=== PATIENT | female | born 1955 | race Caucasian/White ===

== ENCOUNTER 2016-06-03 06:58 | Day surgery (SDC) | payer OTHER ==
[~2016-06-03] VITALS: Ht 165.1 cm; Wt 95.2 kg
[2016-06-03] VITALS (7 sets, daily range): BP systolic 123–150; BP diastolic 64–90; PULSE 73–96; TEMP 97.8–99
[2016-06-03] MEDS ORDERED: AMBIEN 5MG TABLE5 MG PO (09:02)
[2016-06-03] MEDS ORDERED: ACIPHEX20 MG PO (09:02)
[2016-06-03] MEDS ORDERED: GLUCOPHAGE500 MG/TAB PO (09:03)
[2016-06-03] MEDS ORDERED: TESSALON PERLE200 MG PO (09:04)
[2016-06-03] MEDS ORDERED: ZANTAC 150MG T150 MG PO (09:05)
[2016-06-03] MEDS ORDERED: TUMS500 MG PO (09:06)
[2016-06-03] MEDS ORDERED: PERCOCET 325 MG1 TA2 PO (10:25)
== END 2016-06-03 12:45 | disposition home or self-care (01) ==
LOC: SDCO 06:58
DX: C50.111 Malignant neoplasm of central portion of right female breast (principal); K76.0 Fatty (change of) liver, not elsewhere classified; D69.59 Other secondary thrombocytopenia; E66.9 Obesity, unspecified; G47.33 Obstructive sleep apnea (adult) (pediatric); E11.9 Type 2 diabetes mellitus without complications; Z79.84 Long term (current) use of oral hypoglycemic drugs
CPT/HCPCS: J0690; J1100; J1170; J2270; J2405; J2704; J3010; J7030

== ENCOUNTER 2016-08-25 07:27 | Day surgery (SDC) | payer OTHER ==
[~2016-08-25] VITALS: Ht 165.1 cm; Wt 100.5 kg
[~2016-08-25 07:27] MED LIST: ACIPHEX20 MG PO; AMBIEN 5MG TABLE5 MG PO; GLUCOPHAGE500 MG/TAB PO; PERCOCET 325 MG1 TA2 PO; TESSALON PERLE200 MG PO; TUMS500 MG PO; ZANTAC 150MG T150 MG PO
[2016-08-25 08:14] VITALS: BP 156/80; PULSE 72; TEMP 98.5
[2016-08-25] MEDS ORDERED: TAMOXIFEN CITRA20 MG PO (08:26)
[2016-08-25 09:30] VITALS: BP 164/101; PULSE 84; TEMP 98.8
[2016-08-25 09:45] VITALS: BP 139/83; PULSE 75
[2016-08-25 10:00] VITALS: BP 135/91; PULSE 74
[2016-08-25 11:42] VITALS: BP 162/90; PULSE 96
== END 2016-08-25 10:30 | disposition home or self-care (01) ==
LOC: SDCO 07:27
DX: I85.01 Esophageal varices with bleeding (principal); K44.9 Diaphragmatic hernia without obstruction or gangrene; K29.50 Unspecified chronic gastritis without bleeding; K21.9 Gastro-esophageal reflux disease without esophagitis; I10 Essential (primary) hypertension; E78.00 Pure hypercholesterolemia, unspecified; Z85.3 Personal history of malignant neoplasm of breast; K74.60 Unspecified cirrhosis of liver
CPT/HCPCS: OP; J2250; J2704; J3010; J7030

== ENCOUNTER → 2017-05-07 | Outpatient (CLI) | payer OTHER ==
[~2017-05-07] MED LIST changes: +TAMOXIFEN CITRA20 MG PO
== END ==
LOC: MC.RAD 09:25
DX: Z12.31 Encounter for screening mammogram for malignant neoplasm of breast (principal); D05.11 Intraductal carcinoma in situ of right breast

== ENCOUNTER → 2018-05-13 | Outpatient (CLI) | payer OTHER | LOC: MC.RAD 08:49 | DX: Z12.31 Encounter for screening mammogram for malignant neoplasm of breast (principal); D05.11 Intraductal carcinoma in situ of right breast; Z98.890 Other specified postprocedural states ==

== ENCOUNTER 2018-10-18 07:08 | Outpatient (CLI) | payer OTHER ==
[~2018-10-18] VITALS: Ht 165.1 cm; Wt 89.1 kg
[2018-10-18] MEDS ORDERED: COZAAR 50MG50 MG/TAB PO (08:21)
[2018-10-18] MEDS ORDERED: NEURONTIN300 MG/CAP PO (08:22)
[2018-10-18] MEDS ORDERED: FLEXERIL 1010 MG/TAB PO (08:24)
[2018-10-18] MEDS ORDERED: LYRICA 150MG C150 MG PO (08:24)
[2018-10-18] MEDS ORDERED: ZANAFLEX CAPSULE4 MG PO (08:25)
[2018-10-18 08:50] VITALS: BP 144/70; PULSE 90; TEMP 98.6
--- NOTE | 2018-10-18 09:00 | NUR ---
Pt to OR for BMBx per cart with Brandy LINARES.
[2018-10-18 09:35] VITALS: BP 129/77; PULSE 84
--- NOTE | 2018-10-18 09:35 | NUR ---
Pt returned to [facility] per cart s/p bmbx. Pt transfered herself to bed. Pt won bmbx well.
[2018-10-18 09:40] LABS: BASO % 0.2 % (0.0-2.0); EOS # 0.1 (0.0-0.7); EOS % 2.6 % (0-4.0); GRAN % 61.9 % (42.2-75.2); HEMATOCRIT 34.4 % (37.0-47.0); HEMOGLOBIN 11.3 g/dl (12.5-16.0); LYMPH # 1.3 (1.2-3.4); LYMPH % 25.9 % (20.0-51.0); MEAN CELL VOLUME 96 fl (80.0-100.0); MEAN CORPUSCULAR HEMOGLOBIN 32 pg (27.0-31.0); MEAN CORPUSCULAR HGB CONC 33 g/dl (33.0-37.0); MEAN PLATELET VOLUME 10.8 fl (7.4-10.4); MONO # 0.4 (0.1-0.6); PLATELET COUNT 74 K/mm3 (130-400); RED BLOOD COUNT 3.57 M/mm3 (4.10-5.30)
[2018-10-18 09:50] VITALS: BP 124/73; PULSE 79
[2018-10-18 10:05] VITALS: BP 123/57; PULSE 77; TEMP 98.3
--- NOTE | 2018-10-18 10:15 | NUR ---
Pt has ambulated, voided and won PO intake s n/v. PIV removed with catheter intact.
[2018-10-18 10:20] VITALS: BP 133/66; PULSE 83
--- NOTE | 2018-10-18 10:30 | NUR ---
Pt discharged per w/c by nurse with .
== END 2018-10-18 10:55 | disposition home or self-care (01) ==
LOC: SDCO 07:08
PROVIDERS: Pathology Anatomic Pathology & Clinical Pathology
DX: D64.9 Anemia, unspecified (principal); D05.11 Intraductal carcinoma in situ of right breast; K74.60 Unspecified cirrhosis of liver; D61.818 Other pancytopenia; R53.83 Other fatigue; Z80.1 Family history of malignant neoplasm of trachea, bronchus and lung; Z82.5 Family history of asthma and other chronic lower respiratory diseases; E11.9 Type 2 diabetes mellitus without complications; Z79.84 Long term (current) use of oral hypoglycemic drugs; Z88.6 Allergy status to analgesic agent
CPT/HCPCS: J2704; J3010; J7120

== ENCOUNTER → 2019-05-26 | Outpatient (CLI) | payer OTHER ==
[~2019-05-26] MED LIST changes: +COZAAR 50MG50 MG/TAB PO; +FLEXERIL 1010 MG/TAB PO; +LYRICA 150MG C150 MG PO; +NEURONTIN300 MG/CAP PO; +ZANAFLEX CAPSULE4 MG PO
== END ==
LOC: MC.RAD 12:19
DX: Z12.31 Encounter for screening mammogram for malignant neoplasm of breast (principal); Z98.890 Other specified postprocedural states; Z98.82 Breast implant status; Z85.3 Personal history of malignant neoplasm of breast

== ENCOUNTER → 2020-05-28 | Outpatient (CLI) | payer MEDICARE, OTHER | LOC: MC.RAD 09:52 | DX: D05.11 Intraductal carcinoma in situ of right breast (principal) ==

== ENCOUNTER 2020-08-30 15:34 | Emergency (ER) | payer MEDICARE, OTHER ==
[~2020-08-30] VITALS: Ht 165.1 cm; Wt 90.9 kg
[2020-08-30 15:42] VITALS: TEMP 98.9
[2020-08-30 16:07] LABS: BASO % 0.7 % (0.0-2.0); EOS # 0.2 (0.0-0.7); EOS % 4.3 % (0-4.0); GRAN # 2.6 (1.4-6.5); LYMPH % 22.6 % (20.0-51.0); MEAN CELL VOLUME 96 fl (80.0-100.0); MEAN CORPUSCULAR HGB CONC 32 g/dl (33.0-37.0); MEAN PLATELET VOLUME 10.5 fl (7.4-10.4); MONO # 0.6 (0.1-0.6); MONO % 14.2 % (1.7-9.3); PLATELET COUNT 63 K/mm3 (130-400); REDCELL DISTRIBUTION WIDTH-CV 14.3 % (11.5-14.5)
[2020-08-30 16:10] LABS: HEMATOCRIT 28.9 % (37.0-47.0); HEMOGLOBIN 9.3 g/dl (12.5-16.0); MEAN CORPUSCULAR HEMOGLOBIN 31 pg (27.0-31.0)
[2020-08-30 16:15] LABS: ALANINE AMINOTRANSFERASE 38 U/L (4-34); ALBUMIN 3.1 gm/dL (3.5-5.0); ALKALINE PHOSPHATASE 70 U/L (50-136); ANION GAP 8 mmol/L (7-16); AST,SGOT 76 U/L (15-37); BILIRUBIN,TOTAL 2.5 mg/dL (0.0-1.0); BLOOD UREA NITROGEN 18 mg/dL (7-17); CALCIUM 8.4 mg/dL (8.4-10.2); CARBON DIOXIDE 20 mmol/L (22-30); CHLORIDE 110 mmol/L (98-107); CREATININE, serum 1.77 (0.52-1.25); GLUCOSE 123 mg/dL (74-106); POTASSIUM 3.6 mmol/L (3.4-5.0); SODIUM 138 mmol/L (137-145); TOTAL PROTEIN 6.6 gm/dL (6.4-8.2)
[2020-08-30 16:29] LABS: INR 1.5 (0.8-3.0); PROTHROMBIN TIME 16.4 SECONDS (9.7-12.8); TROPONIN-I < 0.012 ng/mL (0.000-0.035)
[2020-08-30 17:51] LABS: COLLECTION METHOD CLEAN CATCH
[2020-08-30 18:11] LABS: MUCOUS Present /lpf; PH 5 (5-8); URINE APPEARANCE Hazy; URINE BACTERIA None Seen /hpf; URINE BILIRUBIN Negative (NEGATIVE); URINE BLOOD Negative (NEGATIVE); URINE COLOR Yellow; URINE GLUCOSE Negative (NEGATIVE); URINE KETONE Negative (NEGATIVE); URINE LEUKOCYTE ESTERASE Negative (NEGATIVE); URINE NITRATE Negative (NEGATIVE); URINE PROTEIN(semi-quant) Negative (NEGATIVE); URINE UROBILINOGEN Negative (NEGATIVE)
[2020-08-30 18:43] VITALS: BP 143/74; PULSE 83
[2021-03-12] MEDS ORDERED: AMBIEN 5MG TABLE5 MG PO (12:13)
[2021-03-12] MEDS ORDERED: LASIX 80MG TABL80 MG PO (12:21)
[2021-03-12] MEDS ORDERED: FERRO-TIME325 MG PO (12:21)
[2021-03-12] MEDS ORDERED: ZINC SULFATE 1566 MG PO (12:22)
[2021-03-12] MEDS ORDERED: VITAMIN C500 MG PO (12:23)
[2021-03-12] MEDS ORDERED: ALDACTONE 100M100 MG PO (12:23)
[2021-03-12] MEDS ORDERED: PLAVIX 75MG TAB75 MG PO (12:24)
[2021-03-12] MEDS ORDERED: VITAMIN A10k PO (12:24)
[2021-03-12] MEDS ORDERED: NATURAL E400 IU PO (12:24)
[2021-03-12] MEDS ORDERED: ASPIRIN E.C. 8181 MG PO (12:25)
[2021-03-12] MEDS ORDERED: CIPRO 500MG TA500 MG PO (12:25)
[2021-03-12] MEDS ORDERED: FOLIC ACID 11 MG/TA1 PO (12:28)
[2021-03-12] MEDS ORDERED: NATURAL MAGNES200 MG PO (12:28)
[2021-03-12] MEDS ORDERED: MASON NATURAL2000 IU PO (12:28)
[2021-03-12] MEDS ORDERED: MELATONIN5 M1 PO (12:29)
[2021-03-12] MEDS ORDERED: B-121000 MCG PO (12:29)
[2021-03-12] MEDS ORDERED: XIFAXAN550 MG PO (12:30)
== END 2020-08-30 18:47 | disposition home or self-care (01) ==
LOC: COL.ER 15:34
PROVIDERS: Nurse Practitioner
DX: R60.0 Localized edema (principal); R21 Rash and other nonspecific skin eruption; R06.02 Shortness of breath; Z88.6 Allergy status to analgesic agent; Z88.4 Allergy status to anesthetic agent
CPT/HCPCS: J2270

== ENCOUNTER → 2020-10-03 | Outpatient (CLI) | payer MEDICARE, OTHER ==
[~2020-10-03] MED LIST changes: +ALDACTONE 100M100 MG PO; +ASPIRIN E.C. 8181 MG PO; +B-121000 MCG PO; +CIPRO 500MG TA500 MG PO; +FERRO-TIME325 MG PO; +FOLIC ACID 11 MG/TA1 PO; +LASIX 80MG TABL80 MG PO; +MASON NATURAL2000 IU PO; +MELATONIN5 M1 PO; +NATURAL E400 IU PO; +NATURAL MAGNES200 MG PO; +PLAVIX 75MG TAB75 MG PO; +VITAMIN A10k PO; +VITAMIN C500 MG PO; +XIFAXAN550 MG PO; +ZINC SULFATE 1566 MG PO
== END ==
LOC: COL.RAD 10:00
DX: Z01.818 Encounter for other preprocedural examination (principal); C22.9 Malignant neoplasm of liver, not specified as primary or secondary; J90 Pleural effusion, not elsewhere classified; K76.6 Portal hypertension; K74.60 Unspecified cirrhosis of liver; J98.59 Other diseases of mediastinum, not elsewhere classified

== ENCOUNTER → 2020-10-19 | Outpatient (CLI) | payer MEDICARE, OTHER | LOC: COL.VAS 13:07 | DX: Z01.818 Encounter for other preprocedural examination (principal); C22.0 Liver cell carcinoma ==